=== PATIENT | female | born 1940 | race Two or more races ===

== ENCOUNTER 2018-07-16 12:21 | Emergency (ER) | payer OTHER ==
[~2018-07-16] VITALS: Ht 157.5 cm; Wt 70.3 kg
[~2018-07-16 12:21] MED LIST: EXELON4.5 MG; IOPHEN DM-100 MG/5 M PO; LEVAQUIN750 MG PO; MEGESTROL400 MG/10 PO; NAMENDA10 MG; PROTONIX40 MG PO
[2018-07-16] MEDS ORDERED: CARAFATE1 GM (12:28)
[2018-07-17] MEDS ORDERED: PROTONIX40 MG PO (14:32)
[2018-07-17] MEDS ORDERED: ZANTAC150 M3 PO (14:33)
[2018-07-17] MEDS ORDERED: CARAFATE1 GM PO (14:33)
== END 2018-07-17 16:48 | disposition home or self-care (01) ==
LOC: ER 12:21
DX: K29.00 Acute gastritis without bleeding (principal); R19.09 Other intra-abdominal and pelvic swelling, mass and lump

== ENCOUNTER 2020-10-01 12:23 | Emergency (ER) | payer OTHER ==
[~2020-10-01] VITALS: Ht 157.5 cm; Wt 69.4 kg
[~2020-10-01 12:23] MED LIST changes: +CARAFATE1 GM; +CARAFATE1 GM PO; +ZANTAC150 M3 PO
[2020-10-01] MEDS ORDERED: SIMVASTATIN20 MG PO (12:46)
[2020-10-01] MEDS ORDERED: MEMANTINE HCL10 MG PO (12:46)
[2020-10-01] MEDS ORDERED: SYNTHROID100 MCG PO (12:47)
[2020-10-01] MEDS ORDERED: SYNTHROID88 MCG PO (12:47)
[2020-10-01] MEDS ORDERED: RIVASTIGMINE1 EACH TD (12:48)
[2020-10-01] MEDS ORDERED: FAMOTIDINE20 MG PO (12:48)
== END 2020-10-01 18:42 | disposition home or self-care (01) ==
LOC: ER 12:23
DX: R11.11 Vomiting without nausea (principal); R19.7 Diarrhea, unspecified; R10.13 Epigastric pain; C16.9 Malignant neoplasm of stomach, unspecified; T45.1X5A Adverse effect of antineoplastic and immunosuppressive drugs, initial encounter; Y92.89 Other specified places as the place of occurrence of the external cause

== ENCOUNTER 2022-01-31 11:39 | Inpatient (IN) | payer OTHER ==
[~2022-01-31] VITALS: Ht 157.5 cm; Wt 65.3 kg
[~2022-01-31 11:39] MED LIST changes: +FAMOTIDINE20 MG PO; +MEMANTINE HCL10 MG PO; +RIVASTIGMINE1 EACH TD; +SIMVASTATIN20 MG PO; +SYNTHROID100 MCG PO; +SYNTHROID88 MCG PO
== END 2022-02-03 16:36 | disposition home or self-care (01) | DRG 812 ==
LOC: ER 11:39 → MEDJ 18:41 → SEC-K 18:41 → MEDJ 20:45
PROVIDERS: ADMIT Internal Medicine; ATTEND Internal Medicine
PROC: 30233N1 Transfusion of Nonautologous Red Blood Cells into Peripheral Vein, Percutaneous Approach (ICD-10-PCS; principal; 2022-01-31)
PROC: 30233R1 Transfusion of Nonautologous Platelets into Peripheral Vein, Percutaneous Approach (ICD-10-PCS; 2022-02-02)
DX: D50.0 Iron deficiency anemia secondary to blood loss (chronic) (principal); C85.13 Unspecified B-cell lymphoma, intra-abdominal lymph nodes

== ENCOUNTER 2022-02-22 12:10 | Inpatient (IN) | payer OTHER ==
[~2022-02-22] VITALS: Ht 154.9 cm; Wt 64.0 kg
[2022-02-22] MEDS ORDERED: ADULT LOW DOSE81 M1 PO (12:25)
== END 2022-02-26 22:16 | disposition home or self-care (01) | DRG 813 ==
LOC: ER 12:10 → MEDJ 21:54
PROVIDERS: ADMIT Internal Medicine; ATTEND Internal Medicine
PROC: 30233R1 Transfusion of Nonautologous Platelets into Peripheral Vein, Percutaneous Approach (ICD-10-PCS; principal; 2022-02-23)
PROC: 30233N1 Transfusion of Nonautologous Red Blood Cells into Peripheral Vein, Percutaneous Approach (ICD-10-PCS; 2022-02-23)
DX: D69.59 Other secondary thrombocytopenia (principal); U07.1 COVID-19; C95.90 Leukemia, unspecified not having achieved remission; D64.89 Other specified anemias; U09.9 Post COVID-19 condition, unspecified